=== PATIENT | male | born 2005 | race Caucasian/White ===

== ENCOUNTER 2024-05-28 16:16 | Emergency (ER) | payer OTHER ==
[2024-05-28 16:36] VITALS: BP 129/69; O2SAT 100
--- NOTE | 2024-05-28 17:06 | ED Physician Documentation ---
PD HPI SKIN - Stated complaint Stated Complaint: L ARM BUMP - Chief complaint Chief Complaint: Wound - History obtained from History obtained from: Patient - Additional information Additional information: 18-year-old male presents with a small bump on the left forearm. He noticed it first 2 weeks ago, after he was out on a boat. He is not sure if he got bit by something, since then he has had a small bump but it has not been bothersome, no fever, no redness, no drainage. Has tried some anti-itch cream without relief. 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 PD PAST MEDICAL HISTORY - Past Medical History Past Medical History: No - Present Medications Home Medications: Ambulatory Orders Medication Instructions Recorded Confirmed No Known Home Medications 05/28/24 05/28/24 - Allergies Allergies/Adverse Reactions: Allergies Allergy/AdvReac Type Severity Reaction Status Date / Time No Known Drug Allergies Allergy Verified 05/28/24 16:28 - Social History Does the pt smoke?: No Smoking Status: Never smoker Does the pt have substance abuse?: No - Immunizations Immunizations are current?: Yes PD ED PE NORMAL - Vitals Vital signs reviewed: Yes - General General: Alert and oriented X 3, No acute distress, Well developed/nourished - Derm Derm: Normal color, Warm and dry, Other (There is a small scab on the left forearm and then a small half centimeter cystic structure that is nontender to touch. There is no erythema no drainage.) Results - Vitals Vitals: Vital Signs - 24 hr 05/28/24 16:34 Temperature 36.7 C Heart Rate 68 Respiratory 14 Rate Blood Pressure 129/69 O2 Saturation 100 Oxygen O2 Source Room air PD Medical Decision Making - ED course Complexity details: considered differential, d/w patient ED course: 18-year-old male presented with a small bump on the left forearm. Differentials considered included cyst versus abscess versus insect bite versus foreign body.I discussed with patient that this likely a cyst, likely benign fatty cyst, I do not think it is an abscess this patient has no tenderness with Palpation, no drainage no erythema. I recommended monitoring, no indication for incision and drainage at this time though advised patient that if this became bothersome could be done electively, and to return if any signs of infection. Departure - Departure Disposition: 01 Home, Self Care Clinical Impression: Benign skin cyst Condition: Good Comments: Homer, this looks like a benign fatty cyst on your skin. It does not appear to be an abscess or infection. It can be removed (cut open) but this is an elective procedure and it is not necessary, it can also just be left alone and typically will get better on its own. If you develop increased pain, redness, or fever or new concerns, follow-up before you go and appointment. Forms: PCP List
== END 2024-05-28 17:15 | disposition home or self-care (01) ==
LOC: ED 16:16
DX: L72.9 Follicular cyst of the skin and subcutaneous tissue, unspecified (principal)
CPT/HCPCS: 99281; 99283